=== PATIENT | female | born 1945 | race Caucasian/White ===

== ENCOUNTER 2021-01-25 10:17 | Observation (INO) | payer MEDICARE, OTHER ==
[~2021-01-25] VITALS: Ht 167.6 cm; Wt 71.2 kg
[2021-01-25 10:45] LABS: BASOPHILS 0.5 % (0-2); EOSINOPHILS 1.3 % (0-7); HEMOGLOBIN 10.4 g/dL (12-16); LYMPHOCYTES 19.8 % (15-50); MCH 22.5 pg (26.0-34.0); MCHC 29.6 g/dL (31.0-37.0); MEAN PLATELET VOLUME 6.6 fL (7.4-10.4); MONOCYTES 5.5 % (2-11); NEUTROPHILS 72.9 % (40-80); PLATELET COUNT 367 10x3/uL (130-400); RDW 21.1 % (11.5-14.5); WBC 5.5 10x3/uL (4.8-10.8)
[2021-01-25 10:53] LABS: ALBUMIN 3.2 g/dL (3.4-5.0); ALKALINE PHOSPHATASE 102 U/L (30-120); ALT (SGPT) 33 U/L (10-68); BILIRUBIN - DIRECT 0.11 mg/dL (0.00-0.30); BILIRUBIN - INDIRECT 0.26 mg/dL (0.00-1.00); BILIRUBIN - TOTAL 0.37 mg/dL (0.2-1.3); CALC OSMOLALITY 283 mosm/kg (275-300); CALCIUM 8.3 mg/dL (8.5-10.1); CARBON DIOXIDE 33.4 mmol/L (21.0-32.0); CHLORIDE - SERUM 102 mmol/L (98-107); CREATININE - SERUM 0.6 mg/dL (0.6-1.3); GLUCOSE 102 mg/dL (74-106); POTASSIUM - SERUM 3.5 mmol/L (3.5-5.1); PROTEIN - SERUM 6.5 g/dL (6.4-8.2); SODIUM 143 mmol/L (136-145); UREA NITROGEN 9 mg/dL (7-18); eGFR NON AFRICAN AMERICAN > 90 mL/min (90-120)
[2021-01-25 10:54] LABS: APTT 25.7 SECONDS (22.8-39.4); INR 1.09 (0.85-1.17)
[2021-01-25 12:35] VITALS: BP 128/84; BMI 25.4
[2021-01-25] MEDS ORDERED: ADVAIR 250-501 EAC1 INH (12:44)
[2021-01-25] MEDS ORDERED: VITAMIN D 22000 UNIT PO (12:44)
[2021-01-25] MEDS ORDERED: VENTOLIN HFA [SP8 GM INH (12:44)
[2021-01-25] MEDS ORDERED: PLAVIX75 MG PO (12:44)
[2021-01-25] MEDS ORDERED: FUROSEMIDE20 MG PO (12:45)
[2021-01-25] MEDS ORDERED: AMBIEN10 MG PO (12:45)
[2021-01-25] MEDS ORDERED: NORVASC5 MG PO (12:45)
[2021-01-25] MEDS ORDERED: MULTI-DAY VITAM1 TAB PO (12:45)
[2021-01-25] MEDS ORDERED: LOTENSIN20 MG PO (12:46)
[2021-01-25] MEDS ORDERED: BAYER CHEWABLE81 MG PO (12:46)
[2021-01-25] MEDS ORDERED: IPRAT-ALBUT 0.5-3 ML UPD (12:46)
[2021-01-25] MEDS ORDERED: ZOFRAN4 MG PO (12:47)
[2021-01-25] MEDS ORDERED: PROBIOTIC1 EAC1 PO (12:47)
[2021-01-25] MEDS ORDERED: PROTONIX40 MG PO (12:47)
[2021-01-25] MEDS ORDERED: ATIVAN0.5 MG PO (12:47)
[2021-01-25] MEDS ORDERED: LEVSIN/ANASP0.125 MG PO (12:48)
[2021-01-25 17:18] VITALS: BP 128/76; BMI 25.4
[2021-01-25 17:27] VITALS: BP 126/84
[2021-01-25 20:00] VITALS: BP 107/55
--- NOTE | 2021-01-25 23:34 | NUR ---
ASSESSED AT THE BEGINNING OF THE SHIFT. PT IS ALERT AND ORIENTED, ABLE TO VERBALIZE NEEDS. DAUGHTER WAS AT THE BEDSIDE AT THAT TIME. SHE RECEIVED NORCO FOR PAIN AND SEEMS TO GET RELIEF FROM THAT. SHE IS UP AD JUAN [place]ERT[place] TO THE BATHROOM AND HAS O2 AT 2 LITERS PER N/C. LEFT PORT IS ACCESSED BUT SALINE LOCKED.
--- NOTE | 2021-01-26 05:01 | NUR ---
HAS BEEN RSTING QUIET WITH NO DISTRESS NOTED.
[2021-01-26 06:39] LABS: BASOPHILS 0.3 % (0-2); EOSINOPHILS 1.8 % (0-7); HEMATOCRIT 32.4 % (36.0-48.0); HEMOGLOBIN 9.8 g/dL (12-16); LYMPHOCYTES 15.5 % (15-50); MCH 23.3 pg (26.0-34.0); MCHC 30.2 g/dL (31.0-37.0); MCV 77.1 fL (80.0-100.0); MEAN PLATELET VOLUME 6.9 fL (7.4-10.4); MONOCYTES 5.4 % (2-11); PLATELET COUNT 318 10x3/uL (130-400); RDW 20.9 % (11.5-14.5)
--- NOTE | 2021-01-26 08:15 | NUR ---
PATIENT IN BED WITH IV INTACT. NO COMPLAINTS OR SIGNS OF DISTRESS. FAMILY AT BEDSIDE. CALL LIGHT WITHIN REACH.
[2021-01-26 09:19] VITALS: BP 108/45
[2021-01-26 12:22] VITALS: Ht 167.6 cm; Wt 71.2 kg
[2021-01-26 12:51] VITALS: BP 108/45
--- NOTE | 2021-01-26 15:15 | NUR ---
PATIENT RECIEVED DC INSTRUCTIONS. VERBALIZED UNDERSTANDING. DAUGHTER AT HER SIDE. NO QUESTIONS AT THIS TIME. PORT FLUSHED WITH SALINE AND HEPARIN FLUSH. ACCESS REMOVED AND DRESSING APPLIED. PATIENT HAS NO QUESTIONS AT THIS TIME. ESCORTED DOWN TO PRIVATE VEHICLE WITH PERSONAL BELONGINGS BY DAUGHTER VIA WC.
== END 2021-01-26 15:36 | disposition home or self-care (01) ==
LOC: D.SP 10:17 → D.MS 15:42 → OBSVTIME 15:43 → D.SP 15:43 → D.MS 15:43
PROVIDERS: ADMIT Radiology Diagnostic Radiology; ATTEND Radiology Diagnostic Radiology
DX: C50.919 Malignant neoplasm of unspecified site of unspecified female breast (principal); C78.7 Secondary malignant neoplasm of liver and intrahepatic bile duct